=== PATIENT | female | born 1930 | race Caucasian/White ===

== ENCOUNTER 2017-04-16 13:25 | Outpatient (CLI) | payer MEDICARE, OTHER ==
--- NOTE | 2017-04-16 20:59 | NM ---
LASIX RENOGRAM: Date: 04-16-17 History: Congenital UPJ obstruction. Incontinence. Hydronephrosis. Radiopharmaceutical: 8.2 mCi Technetium 99M MAG 3, IV. Medications: 38 mg of Lasix IV given 15 minutes prior to start of examination. FINDINGS: There is asymmetric diminished uptake of radiotracer in the right kidney compared to the left. There is decreased percent uptake on the right as compared to the left as well. Split renal function is 6 0.8% on the left and 39.2% on the right. Percent uptake on the left is 9.8% and on the right is 6.3% . Half max activity on the left is 18.1 minutes and on the right is 15.4 minutes. Washout curve othe rwise appears to be almost symmetric with static images demonstrating grossly symmetric washout. No asymmetric retention of radiotracer is seen within the kidneys. IMPRESSION: 1. No evidence of a high grade obstruction. 2. Asymmetric split renal function with 60.8% function on the left and 39.2% function on the right. POS: ILYA
== END 2017-04-16 13:26 | disposition home or self-care (01) ==
LOC: NM 13:25
PROVIDERS: ATTEND Urology
DX: N39.46 Mixed incontinence (principal); N13.39 Other hydronephrosis; Q62.11 Congenital occlusion of ureteropelvic junction
CPT/HCPCS: 78708; A4641; A9562